=== PATIENT | female | born 1985 | race African-American/Black ===

== ENCOUNTER 2021-11-14 11:49 | Emergency (ER) | payer SELFPAY ==
[2021-11-14 16:03] LABS: CORONAVIRUS COVID-19 NAA NEGATIVE (NEGATIVE)
[2021-11-14] MEDS ORDERED: Ketorolac 60 MG/2 ML SDV IM ONE (16:45)
== END 2021-11-14 18:00 | disposition home or self-care (01) ==
LOC: JD.ED 11:49
DX: J06.9 Acute upper respiratory infection, unspecified (principal); M25.571 Pain in right ankle and joints of right foot; Z20.822 Contact with and (suspected) exposure to COVID-19
CPT/HCPCS: 0240U; 73610; 81003; 96372; 99283; J1885; 99284

== ENCOUNTER 2023-01-05 13:05 | Emergency (ER) | payer SELFPAY ==
[2023-01-05] MEDS ORDERED: Naproxen 500 MG Tab PO ONE (14:25)
[2023-01-05] MEDS ORDERED: Calcium Carbonate 500 MG Tab.Chew PO ONE (14:31)
== END 2023-01-05 15:35 | disposition home or self-care (01) ==
LOC: JD.ED 13:05
DX: M17.12 Unilateral primary osteoarthritis, left knee (principal); H00.015 Hordeolum externum left lower eyelid; Z90.49 Acquired absence of other specified parts of digestive tract
CPT/HCPCS: 73562; 99283; A9270

== ENCOUNTER 2023-07-13 09:08 | Emergency (ER) | payer SELFPAY ==
[2023-07-13 10:23] LABS: CORONAVIRUS COVID-19 NAA NEGATIVE (NEGATIVE); INFLUENZA A NAA NEGATIVE (NEGATIVE); RESPIRATORY SYNCYTIAL VIR NAA NEGATIVE (NEGATIVE)
== END 2023-07-13 11:01 | disposition home or self-care (01) ==
LOC: JD.ED 09:08
DX: H66.001 Acute suppurative otitis media without spontaneous rupture of ear drum, right ear (principal); E11.9 Type 2 diabetes mellitus without complications; Z79.899 Other long term (current) drug therapy; Z90.49 Acquired absence of other specified parts of digestive tract
CPT/HCPCS: 0241U; 87651; 99283

== ENCOUNTER 2024-03-07 15:48 | Emergency (ER) | payer OTHER ==
[2024-03-07 16:41] LABS: BASOPHILS PERCENT AUTO 0.5 % (0.0-1.0); EOSINOPHILS ABSOLUTE AUTO 0.3 K/mm3 (0.0-0.4); EOSINOPHILS PERCENT AUTO 3.3 % (0.0-6.0); HEMOGLOBIN 11.5 gm/dl (12.0-16.0); IMMATURE GRAN ABSOLUTE AUTO 0.02 K/mm3 (0.00-0.05); IMMATURE GRAN PERCENT AUTO 0.3 % (0.0-0.4); LYMPHOCYTES ABSOLUTE AUTO 2.4 K/mm3 (1.0-4.8); LYMPHOCYTES PERCENT AUTO 31.8 % (24.0-44.0); MEAN CORPUSCULAR HEMOGLOBIN 24.5 pg (28.0-32.0); MEAN CORPUSCULAR HGB CONC 32.9 g/dl (32.0-36.0); MEAN CORPUSCULAR VOLUME 74.5 fl (83.0-99.0); MEAN PLATELET VOLUME 9.2 fl (9.4-12.3); MONOCYTES ABSOLUTE AUTO 0.4 K/mm3 (0.0-0.8); MONOCYTES PERCENT AUTO 5.5 % (0.0-8.0); NEUTROPHILS ABSOLUTE AUTO 4.5 K/mm3 (1.8-7.7); NEUTROPHILS PERCENT AUTO 58.6 % (41.0-71.0); PLATELET COUNT,PLT 475 K/mm3 (150-400); WHITE BLOOD CELL COUNT,WBC 7.61 K/mm3 (3.9-11.3)
[2024-03-07 17:02] LABS: A/G RATIO 1.1 (1-2); ALBUMIN 3.7 g/dl (3.4-5.0); ANION GAP 14.8 (5-15); BILIRUBIN TOTAL 0.3 mg/dL (0.2-1.0); BUN/CREATININE RATIO 17.1 (14-18); CALCIUM 8.7 mg/dL (8.5-10.1); CREATININE 0.7 mg/dL (0.55-1.02); EST CRCL DRUG DOSING (CG) 85.34 mL/min; POTASSIUM,K 3.8 mEq/L (3.5-5.1)
[2024-03-07] MEDS: Ondansetron 4 MG/2 ML SDV IVPUSH ONE (17:28)
[2024-03-07] MEDS: Sodium Chloride 0.9% 10 ML Syringe FLUSH PRN (17:28)
[2024-03-07] MEDS: fentaNYL 100 MCG/2 ML SDV IVPUSH ONE (17:28)
[2024-03-07] MEDS: Sodium Chloride 0.9% 1,000 ML IV STA (17:29)
[2024-03-07] MEDS: Ketorolac 30 MG/ML SDV IVPUSH ONE (19:50)
== END 2024-03-07 19:49 | disposition home or self-care (01) ==
LOC: JD.ED 15:48
DX: D25.9 Leiomyoma of uterus, unspecified (principal); N92.1 Excessive and frequent menstruation with irregular cycle; E11.9 Type 2 diabetes mellitus without complications; Z90.49 Acquired absence of other specified parts of digestive tract
CPT/HCPCS: 36415; 76830; 80053; 84703; 85025; 86850; 86900; 86901; 96361; 96374; 96375; 99284; J1885; J2405; J3010; J7030

== ENCOUNTER 2024-07-31 15:18 | Emergency (ER) | payer MEDICAID ==
[2024-07-31 17:09] LABS: HEMATOCRIT 36.8 % (37.0-47.0); HEMOGLOBIN 11.5 gm/dl (12.0-16.0); MEAN CORPUSCULAR HEMOGLOBIN 21.9 pg (28.0-32.0); MEAN CORPUSCULAR HGB CONC 31.3 g/dl (32.0-36.0); MEAN PLATELET VOLUME 9.2 fl (9.4-12.3); PLATELET COUNT,PLT 494 K/mm3 (150-400); RED BLOOD CELL COUNT 5.26 M/mm3 (4.10-5.30); WHITE BLOOD CELL COUNT,WBC 8.94 K/mm3 (3.9-11.3)
[2024-07-31 17:34] LABS: A/G RATIO 0.9 (1-2); ALBUMIN 3.5 g/dl (3.4-5.0); ANION GAP 12.9 (5-15); BILIRUBIN TOTAL 0.2 mg/dL (0.2-1.0); BUN/CREATININE RATIO 21.4 (14-18); CALCIUM 9.1 mg/dL (8.5-10.1); CREATININE 0.7 mg/dL (0.55-1.02); EST CRCL DRUG DOSING (CG) 80.61 mL/min; POTASSIUM,K 3.9 mEq/L (3.5-5.1); PROTEIN TOTAL,TP 7.4 g/dl (6.4-8.2)
[2024-07-31] MEDS: HYDROmorphone 0.5 MG/0.5 ML Syringe IVPUSH ONE (17:50)
[2024-07-31 17:54] LABS: BAND PERCENT MAN 0 % (0-10); LYMPHOCYTES PERCENT MAN 30 % (20-40)
[2024-07-31 17:55] LABS: BASOPHILS PERCENT MAN 0 (0.1-1.2); EOSINOPHILS PERCENT MAN 1 % (0.7-5.8); MONOCYTES PERCENT MAN 3 % (2-10); PLATELET COUNT ESTIMATE ADEQUATE
[2024-07-31] MEDS: Naloxone 0.4 MG/ML SDV IVPUSH PRN (17:55)
[2024-07-31] MEDS: Iopamidol 612 MG/ML 100 ML Bottle IVPUSH ONE (18:28)
[2024-07-31] MEDS: Sodium Chloride 0.9% 10 ML Syringe FLUSH ONE (18:28)
== END 2024-07-31 21:38 | disposition home or self-care (01) ==
LOC: JD.ED 15:18
DX: N93.9 Abnormal uterine and vaginal bleeding, unspecified (principal); E11.9 Type 2 diabetes mellitus without complications
CPT/HCPCS: 36415; 74177; 76830; 80053; 83540; 84703; 85007; 85027; 86850; 86900; 86901; 96374; 96375; 99284; J2310; Q9967; 99283; J1171

== ENCOUNTER 2024-08-25 09:49 | Emergency (ER) | payer MEDICAID ==
[2024-08-25] MEDS: Ketorolac 60 MG/2 ML SDV IM ONE (11:09)
[2024-08-25 11:19] LABS: BASOPHILS ABSOLUTE AUTO 0.1 K/mm3 (0.0-0.2); BASOPHILS PERCENT AUTO 1.0 % (0.0-1.0); EOSINOPHILS ABSOLUTE AUTO 0.2 K/mm3 (0.0-0.4); EOSINOPHILS PERCENT AUTO 4.0 % (0.0-6.0); IMMATURE GRAN ABSOLUTE AUTO 0.01 K/mm3 (0.00-0.05); IMMATURE GRAN PERCENT AUTO 0.2 % (0.0-0.4); LYMPHOCYTES ABSOLUTE AUTO 1.3 K/mm3 (1.0-4.8); LYMPHOCYTES PERCENT AUTO 21.7 % (24.0-44.0); MEAN PLATELET VOLUME 9.6 fl (9.4-12.3); MONOCYTES ABSOLUTE AUTO 0.4 K/mm3 (0.0-0.8); MONOCYTES PERCENT AUTO 7.3 % (0.0-8.0); NEUTROPHILS ABSOLUTE AUTO 3.8 K/mm3 (1.8-7.7); NEUTROPHILS PERCENT AUTO 65.8 % (41.0-71.0); NRBC ABSOLUTE 0.00 (0.00-0.02); NRBC PERCENT 0.0 % (0.0-0.2); RED BLOOD CELL COUNT 4.88 M/mm3 (4.10-5.30); WHITE BLOOD CELL COUNT,WBC 5.75 K/mm3 (3.9-11.3)
[2024-08-25 11:23] LABS: PLATELET COUNT,PLT 416 K/mm3 (150-400)
[2024-08-25 11:36] LABS: A/G RATIO 0.9 (1-2); ALANINE AMINOTRANSFERASE,ALT 23 U/L (14-59); ASPARTATE AMNIOTRANSFERASE,AST 23 U/L (15-37); BILIRUBIN TOTAL 0.3 mg/dL (0.2-1.0); BLOOD UREA NITROGEN,BUN 10 mg/dL (7-18); CARBON DIOXIDE,CO2 24 mEq/L (21-32); CHLORIDE,CL 107 mEq/L (98-107); CREATININE 0.6 mg/dL (0.55-1.02); ESTIMATED GFR 116 mL/min (>60); GLUCOSE RANDOM 119 mg/dL (70-99); POTASSIUM,K 3.8 mEq/L (3.5-5.1); PROTEIN TOTAL,TP 6.8 g/dl (6.4-8.2); SODIUM,NA 140 mEq/L (136-145)
== END 2024-08-25 11:55 | disposition home or self-care (01) ==
LOC: JD.ED 09:49
DX: N93.8 Other specified abnormal uterine and vaginal bleeding (principal); D64.9 Anemia, unspecified; E11.9 Type 2 diabetes mellitus without complications; Z90.49 Acquired absence of other specified parts of digestive tract; Z79.899 Other long term (current) drug therapy
CPT/HCPCS: 36415; 80053; 85025; 96372; 99284; A9270; J1885

== ENCOUNTER 2024-10-24 14:03 | Emergency (ER) | payer MEDICAID ==
[2024-10-24] MEDS ORDERED: Naloxone 0.4 MG/ML SDV IVPUSH PRN (16:15)
[2024-10-24] MEDS: Ketorolac 60 MG/2 ML SDV IM ONE (16:20)
== END 2024-10-24 16:28 | disposition home or self-care (01) ==
LOC: JD.ED 14:03
DX: M54.50 Low back pain, unspecified (principal); M25.511 Pain in right shoulder; M25.561 Pain in right knee; M54.2 Cervicalgia; Z79.899 Other long term (current) drug therapy; E11.9 Type 2 diabetes mellitus without complications; F17.200 Nicotine dependence, unspecified, uncomplicated; Z90.49 Acquired absence of other specified parts of digestive tract
CPT/HCPCS: 70450; 71045; 72125; 72131; 73030; 73562; 96372; 96374; 99284; J1885; J1171

== ENCOUNTER 2025-01-22 17:12 | Emergency (ER) | payer MEDICAID ==
[2025-01-22] MEDS: Ketorolac 60 MG/2 ML SDV IM ONE (18:23)
== END 2025-01-22 19:00 | disposition home or self-care (01) ==
LOC: JD.ED 17:12
DX: M54.50 Low back pain, unspecified (principal); E11.9 Type 2 diabetes mellitus without complications; Z79.899 Other long term (current) drug therapy; Z79.84 Long term (current) use of oral hypoglycemic drugs; X50.1XXA Overexertion from prolonged static or awkward postures, initial encounter
CPT/HCPCS: 96372; 99283; J1885